=== PATIENT | male | born 2000 | race African-American/Black ===

== ENCOUNTER 2024-07-30 20:28 | Emergency (ER) | payer OTHER ==
[~2024-07-30] VITALS: Ht 175.3 cm; Wt 90.0 kg
[2024-07-30 21:50] VITALS: BP 126/79
== END 2024-07-30 21:50 | disposition other institution, planned readmission (95) ==
LOC: ED 20:28
DX: S90.212A Contusion of left great toe with damage to nail, initial encounter (principal); X58.XXXA Exposure to other specified factors, initial encounter
CPT/HCPCS: 99283